=== PATIENT | male | born 1975 | race Caucasian/White ===

== ENCOUNTER 2022-07-14 18:32 | Emergency (ER) | payer OTHER, SELFPAY ==
[2022-07-14 18:38] VITALS: BP 157/102; PULSE 114; RESP 16; TEMP 37.3; O2SAT 99
--- NOTE | 2022-07-14 18:54 | ED.GENADULT ---
HPI - General Adult General Chief complaint: Upper Respiratory Infection Stated complaint: eyes and ears irratated Related Data Allergies Allergy/AdvReac Type Severity Reaction Status Date / Time Penicillins Allergy Mild Verified 02/08/09 14:37 Course Vital Signs Vital signs: Vital Signs Temperature 37.3 C 07/14/22 18:38 Pulse Rate 114 H 07/14/22 18:38 Respiratory Rate 16 07/14/22 18:38 Blood Pressure 157/102 H 07/14/22 18:38 Pulse Oximetry 99 07/14/22 18:38 Oxygen Delivery Room Air 07/14/22 18:38 Temperature 37.3 C 07/14/22 18:38 Pulse Rate 114 H 07/14/22 18:38 Respiratory Rate 16 07/14/22 18:38 Blood Pressure 157/102 H 07/14/22 18:38 Pulse Oximetry 99 07/14/22 18:38 Oxygen Delivery Room Air 07/14/22 18:38 Medical Decision Making Vital Signs Vital Signs: Vital Signs Temperature 37.3 C 07/14/22 18:38 Pulse Rate 114 H 07/14/22 18:38 Respiratory Rate 16 07/14/22 18:38 Blood Pressure 157/102 H 07/14/22 18:38 Pulse Oximetry 99 07/14/22 18:38 Oxygen Delivery Room Air 07/14/22 18:38 Temperature 37.3 C 07/14/22 18:38 Pulse Rate 114 H 07/14/22 18:38 Respiratory Rate 16 07/14/22 18:38 Blood Pressure 157/102 H 07/14/22 18:38 Pulse Oximetry 99 07/14/22 18:38 Oxygen Delivery Room Air 07/14/22 18:38 Discharge Plan Discharge Patient Disposition: Home, Self-Care Condition: Stable Instructions: Antibiotic Form Prescriptions: New ofloxacin 0.3 % drops 5 drp RIGHT EAR BID 7 Days Qty: 10 0RF Follow-up/Referrals: PHYSICIAN,RECEIVING SPECIALIST [Primary Care Provider] -
--- NOTE | 2022-07-14 18:59 | ED.GENADULT ---
HPI - General Adult General Chief complaint: Upper Respiratory Infection Stated complaint: eyes and ears irratated Time Seen by Provider: 07/14/22 18:50 Source: patient, RN notes reviewed and old records reviewed Mode of arrival: ambulatory Limitations: no limitations History of Present Illness HPI narrative: 46 year old male who presents to [facility] with complaints of 3 day history of pain and irritation to his right ear, patient reports that it feels like he has fluid in his right ear. Patient denies any sinus congestion or drainage or any sore throat or any cough associated with ear symptoms. Patient denies any fevers, chills or sweats, denies any body aches. Patient also reports that his eyes have felt irritated, occasional blurring of eyes and also with some burning at night for some time. He reports he has had to get stronger reading glasses. He states that he has appointment with his eye doctor tomorrow. Visual acuity left eye 20/40, right eye 20/50 without corrective lens. 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 MD complaint: right ear pain Onset (ago): day(s) (3) Location: head (right ear) Severity scale (1-10): 1 Treatments prior to arrival: none Related Data Allergies Allergy/AdvReac Type Severity Reaction Status Date / Time Penicillins Allergy Mild Rash Verified 07/14/22 19:30 Review of Systems Review of Systems: CONSTITUTIONAL: Denies fever, chills, or sweats. EYES: reports some visual changes for weeks with no redness or discharge to eyes,wears reading glasses ENT: Denies rhinorrhea, congestion, sore throat, positive for right ear pain. CARDIOVASCULAR: Denies chest pain, palpitations, or edema. RESPIRATORY: Denies cough or dyspnea. GASTROINTESTINAL: Denies abdominal pain, nausea, vomiting, or diarrhea. GENITOURINARY: Denies dysuria or hematuria. SKIN: Denies rash or itching. MUSCULOSKELETAL: Denies back pain, joint pain, or myalgia. NEUROLOGIC: Denies headache, numbness, or weakness. PSYCHIATRIC: Denies anxiety or depression. All systems reviewed & are unremarkable except as noted in HPI and below PMFSH Past Medical History Medical History (Updated 07/15/22 @ 09:06 by Emely Barnard NP) Fracture of left elbow Heart murmur Social History Social History (Updated 07/14/22 @ 19:47 by Emely Barnard NP) Smoking packs per day: 1 Smoking cigarettes per day: 20.0 Years smoked: 25 Smoking pack-years: 25.00 Smoking status: Current every day smoker Tobacco type: cigarettes Alcohol intake: unknown Substance use type: does not use Gender identity (if verbalized by the patient): Male Comments At time of signature, agree with nursing past medical, surgical, social and family history. There is no relevant family history pertinent to the presenting complaint Exam Narrative: GENERAL: Well-appearing, well-nourished, and in no acute distress. HEAD: Normocephalic, atraumatic. EYES: PERRLA and EOMI. no redness or drainage note visual acuity left eye 20/40 right eye 20/50 without correction. ENT: Nares clear, no rhinorrhea or epistaxis. Mucous membranes moist.TM's normal bilateral ears with redness swelling to right ear canal, no drainage noted.throat pink with no lesions or exudates no selling present. NECK: Supple. no lymphadenopathy CHEST: Clear to auscultation. No respiratory distress.SAO2 99% on room air HEART: Regular rate and rhythm.pansystolic murmur noted. Normal peripheral pulses. ABDOMEN: Soft, nontender, nondistended, normal active bowel sounds. EXTREMITIES: Normal range of motion. No edema. SKIN: Warm, dry, no rash. NEURO: No focal deficits. Alert and oriented x3. Course Course Level of Care: Express Care Visit Vital Signs Vital signs: Vital Signs Temperature 37.3 C 07/14/22 18:38 Pulse Rate 114 H 07/14/22 18:38 Respiratory Rate 16 07/14/22 18:38 Blood Pressure 157/102 H 07/14/22 18:38 Pulse Oximetry 99 07/14/22 18:
== END 2022-07-14 19:23 | disposition home or self-care (01) ==
PROVIDERS: Emergency Provider Registered Nurse
DX: H60.91 Unspecified otitis externa, right ear (principal); R01.1 Cardiac murmur, unspecified; F17.210 Nicotine dependence, cigarettes, uncomplicated
CPT/HCPCS: 99213; G0463